=== PATIENT | female | born 1950 | race Caucasian/White ===

== ENCOUNTER 2016-11-06 18:16 | Emergency (ER) | payer OTHER ==
[~2016-11-06] VITALS: Ht 147.3 cm; Wt 73.9 kg
[~2016-11-06 18:16] MED LIST: AMIT10TA6 PO; ASPI81TA21 PO; ATOR80TA PO; LEVO50TA PO; LSN/10125 PO; OMEP20CA59 PO
[2016-11-06 18:25] VITALS: TEMP 37.1; Ht 147.3 cm; Wt 73.9 kg
[2016-11-06] MEDS ORDERED: SODIUM CHLORIDE 0.9% 1000ML 1,000 ML IV STA (19:46)
--- NOTE | 2016-11-06 20:07 | DIAGNOSTIC IMAGING REPORT ---
CHEST ONE VIEW PORTABLE CLINICAL HISTORY: Atypical chest pain, cough, shortness of breath. COMPARISON STUDY: No previous studies for comparison. FINDINGS: The heart is at the upper limits of normal in size. There is no failure. There is no focal pulmonary consolidation. There are no pleural effusions.[ IMPRESSION: No active disease in the chest. Electronically signed by: Eugenio Tijerina M.D. 11/06/2016 8:06 PM Dictated Date/Time: 11/06/2016 8:05 PM
[2016-11-06 20:28] LABS: BASO % 0.5 %; BASO ABS # 0.04 K/uL (0-0.2); COMPLETE YES; EOS % 5.9 %; HEMATOCRIT 41.7 % (37-47); IG% 0.3 %; LYMPH % 38.6 %; LYMPH ABS # 2.96 K/uL (1.2-3.4); MEAN CELL VOLUME 87.4 fL (80-100); MEAN CORPUSCULAR HEMOGLOBIN 30.8 pg (25-34); MEAN CORPUSCULAR HGB CONC 35.3 g/dl (32-36); MEAN PLATELET VOLUME 10.3 fL (7.4-10.4); MONO % 9.8 %; NEUT % 44.9 %; PLATELET COUNT 171 K/uL (130-400); RED BLOOD COUNT 4.77 M/uL (4.2-5.4); WHITE BLOOD COUNT 7.67 K/uL (4.8-10.8)
[2016-11-06 20:49] LABS: ALT/SGPT 98 U/L (12-78); BLOOD UREA NITROGEN 18 mg/dl (7-18); BUN/CREATININE RATIO 17.8 (10-20); CALCIUM 9.5 mg/dl (8.5-10.1); CARBON DIOXIDE 26 mmol/L (21-32); CHLORIDE 96 mmol/L (98-107); GLUCOSE 117 mg/dl (70-99); SODIUM 133 mmol/L (136-145)
[2016-11-06 20:54] LABS: ALKALINE PHOSPHATASE 99 U/L (45-117); AST/SGOT 61 U/L (15-37); CKMB/CK RATIO 0.8 (0-3.0)
[2016-11-06] MEDS ORDERED: ALBUT/IPRATROP 3MG/0.5MG NEB 3 ML VIAL INH STA (21:03)
[2016-11-06] MEDS ORDERED: POTASSIUM CHLORIDE 10 MEQ TABCR PO STA (21:03)
[2016-11-06] MEDS ORDERED: SYN88 PO (21:08)
[2016-11-06] MEDS ORDERED: LOSA100T26 PO (21:10)
[2016-11-06] MEDS ORDERED: AMLO-110 PO (21:10)
[2016-11-06] MEDS ORDERED: OPTIRAY 320 IV PRN (21:30)
[2016-11-06] MEDS ORDERED: AZITHROMYCIN 250 MG TAB PO STA (22:26)
[2016-11-06] MEDS ORDERED: AZIT250T5 PO (22:27)
--- NOTE | 2016-11-06 22:28 | DIAGNOSTIC IMAGING REPORT ---
CT ANGIOGRAM OF THE CHEST CLINICAL HISTORY: Atypical chest pain, cough, shortness of breath COMPARISON STUDY: Chest x-ray dated November 06, 2016 TECHNIQUE: Following the IV administration of 78 mL of Optiray-320, CT angiogram of the thorax was performed from the thoracic inlet to the lung bases utilizing the pulmonary embolus protocol. Images are reviewed in the axial, sagittal, and coronal planes. IV contrast was administered without complication. MIP imaging was performed. CT DOSE: 491.22 mGy.cm FINDINGS: There is hepatic steatosis. There is a small hiatal hernia. No pathologically enlarged axillary mediastinal or hilar lymph nodes were visualized. There was no evidence of thoracic aortic dilatation. There were no pulmonary artery filling defects to indicate acute pulmonary embolism. No pleural effusions are visualized. There is bronchial wall thickening and areas of mucous plugging. There are fluffy airspace opacities in the left upper lobe, consistent with a pneumonia. There are dependent atelectatic changes. IMPRESSION: 1. No CT evidence of acute pulmonary embolism 2. Fluffy nodular airspace opacities within the left upper lobe consistent with a pneumonia 3. Areas of bronchial wall thickening and mucous plugging. 4. Hepatic steatosis Electronically signed by: Eugenio Tijerina M.D. 11/06/2016 9:49 PM Dictated Date/Time: 11/06/2016 9:45 PM
[2016-11-06] MEDS ORDERED: ALBUTEROL HFA 8 GM INHALER INH ONE (22:30)
[2016-11-06 22:37] VITALS: BP 119/71; PULSE 101; O2SAT 96
--- NOTE | 2016-11-06 22:37 | EMERGENCY ROOM VISIT NOTE ---
History Report prepared by Mauri: Sarah Sheldon Under the Supervision of: Dr. Christian Cole M.D. First contact with patient: 19:46 Chief Complaint: REFERRED BY DOCTOR Stated Complaint: COUGH, SOB, CONGESTION History of Present Illness The patient is a 66 year old female who presents to the Emergency Room with complaints of a persistent cough for the past week, that worsened over the last two days. The patient states that she went to her PCP's office today and was told to come to the emergency department for further evaluation. She states that while at her PCP's office, she had an elevated heart rate, but notes that her blood pressure was normal. The patient states that her PCP was worried about a possible pneumonia developing. She notes a personal history of hyperthyroidism and hypertension. The patient notes increased bilateral lower extremity edema. The patient notes a surgical history of a hernia repair and a cholecystectomy. She states that her father had angina, but denies any large family history of heart disease. Pt denies LOC, headache, fevers, chills, diaphoresis, visual changes, neck pain, chest pain, personal history or family history of aneurysm or pulmonary embolism, uncontrolled hypertension, breathing difficulties, leg swelling, coagulation abnormalities, prolonged travel, recent surgery or immobilization, nausea, vomiting, abdominal pain, melena, hematochezia, urinary symptoms, numbness, weakness, lymphadenopathy, rash, or other complaints. Source of History: patient Onset: past week Position: other (global) Quality: other (cough) Timing: other (persistent) Note: Associated Symptoms: bilateral lower extremity edema. Review of Systems See HPI for pertinent positives and negatives. A total of ten systems were reviewed and were otherwise negative. Past Medical & Surgical Medical Problems: (1) Hypertension (2) Hyperthyroidism Surgical Problems: (1) S/P cholecystectomy (2) S/P hernia repair Family History No pertinent family history stated. Social History Smoking Status: Never Smoker Marital Status: Housing Status: lives with significant other Occupation Status: employed Current/Historical Medications Scheduled Amitriptyline Hcl (Elavil), 10 MG PO DHS Amlodipine (Norvasc), 5 MG PO QAM Aspirin Enteric Coated (Ecotrin Or Generic), 81 MG PO DAILY Azithromycin (Zithromax), 250 MG PO DAILY Levothyroxine Sodium (Synthroid), 88 MCG PO QAM Losartan Potassium & Hydrochlo (Losartan Potassium/Hydroc), 1 TAB PO QAM Omeprazole (Prilosec), 20 MG PO [facility] Allergies Coded Allergies: Sulfa Drugs (Verified Allergy, Unknown, HIVES, 11/06/16) Physical Exam Vital Signs Date Time Temp Pulse Resp B/P Pulse Ox O2 Delivery O2 Flow Rate FiO2 11/06/16 21:15 122 20 127/85 95 Room Air 11/06/16 18:25 37.1 124 20 125/75 95 Room Air Physical Exam GENERAL: Awake, alert, well-appearing, in no distress HENT: Normocephalic, atraumatic. Oropharynx unremarkable. EYES: Normal conjunctiva. Sclera non-icteric. NECK: Supple. No nuchal rigidity. FROM. No JVD. RESPIRATORY: Scattered rhonchi noted. CARDIAC: Tachycardic rate, normal rhythm. Extremities warm and well perfused. Pulses equal. ABDOMEN: Soft, non-distended. No tenderness to palpation. No rebound or guarding. No masses. RECTAL: Deferred. MUSCULOSKELETAL: Chest examination reveals no tenderness. The back is symmetrical on inspection without obvious abnormality. There is no CVA tenderness to palpation. No joint edema. LOWER EXTREMITIES: Calves are equal size bilaterally and non-tender. No edema. No discoloration. NEURO: Normal sensorium. No sensory or motor deficits noted. SKIN: No rash or jaundice noted. Medical Decision & Procedures ER Provider Diagnostic Interpretation: X-ray: Per my interpretation, radiologist review. CHEST ONE VIEW PORTABLE CLINICAL HISTORY: Atypical chest pain, cough, shortness of breath. COMPARISON STUDY: No previous studies for comparison. FINDINGS: The heart is at the upper limits of normal in size. There is no failure. There is no focal pulmonary consolidation. There are no pleural effusions.[ IMPRESSION: No active disease in the chest. Electronically signed by: Eugenio Tijerina M.D. 11/06/2016 8:06 PM Dictated Date/Time: 11/06/2016 8:[address] imaging gram of the chest. No evidence of pulmonary embolism was noted. Fluffy nodular airspace opacities within the left upper lobe consistent with pneumonia. Areas of bronchial wall thickening and mucus plugging present. Hepatic steatosis noted. Laboratory Results 11/06/16 20:10 Red Blood Count 4.77, Mean Corpuscular Volume 87.4, Mean Corpuscular Hemoglobin 30.8, Mean Corpuscular Hemoglobin Concent 35.3, Mean Platelet Volume 10.3, Neutrophils (%) (Auto) 44.9, Lymphocytes (%) (Auto) 38.6, Monocytes (%) (Auto) 9.8, Eosinophils (%) (Auto) 5.9, Basophils (%) (Auto) 0.5, Neutrophils # (Auto) 3.45, Lymphocytes # (Auto) 2.96, Monocytes # (Auto) 0.75, Eosinophils # (Auto) 0.45, Basophils # (Auto) 0.04 11/06/16 20:10 Test 11/06/16 20:10 11/06/16 21:00 White Blood Count 7.67 K/uL (4.8-10.8) Red Blood Count 4.77 M/uL (4.2-5.4) Hemoglobin 14.7 g/dL (12.0-16.0) Hematocrit 41.7 % (37-47) Mean Corpuscular Volume 87.4 fL (80-100) Mean Corpuscular Hemoglobin 30.8 pg (25-34) Mean Corpuscular Hemoglobin Concent 35.3 g/dl (32-36) Platelet Count 171 K/uL (130-400) Mean Platelet Volume 10.3 fL (7.4-10.4) Neutrophils (%) (Auto) 44.9 % Lymphocytes (%) (Auto) 38.6 % Monocytes (%) (Auto) 9.8 % Eosinophils (%) (Auto) 5.9 % Basophils (%) (Auto) 0.5 % Neutrophils # (Auto) 3.45 K/uL (1.4-6.5) Lymphocytes # (Auto) 2.96 K/uL (1.2-3.4) Monocytes # (Auto) 0.75 K/uL (0.11-0.59) Eosinophils # (Auto) 0.45 K/uL (0-0.5) Basophils # (Auto) 0.04 K/uL (0-0.2) RDW Standard Deviation 43.8 fL (36.4-46.3) RDW Coefficient of Variation 13.7 % (11.5-14.5) Immature Granulocyte % (Auto) 0.3 % Immature Granulocyte # (Auto) 0.02 K/uL (0.00-0.02) Anion Gap 11.0 mmol/L (3-11) Est Creatinine Clear Calc Drug Dose 47.3 ml/min Estimated GFR () 68.0 Estimated GFR (Non- 58.7 BUN/Creatinine Ratio 17.8 (10-20) Calcium Level 9.5 mg/dl (8.5-10.1) Total Bilirubin 0.6 mg/dl (0.2-1) Direct Bilirubin 0.1 mg/dl (0-0.2) Aspartate Amino Transf (AST/SGOT) 61 U/L (15-37) Alanine Aminotransferase (ALT/SGPT) 98 U/L (12-78) Alkaline Phosphatase 99 U/L (45-117) Total Creatine Kinase 198 U/L (26-192) Creatine Kinase MB 1.5 ng/ml (0.5-3.6) Creatine Kinase MB Ratio 0.8 (0-3.0) Troponin I < 0.015 ng/ml (0-0.045) Total Protein 8.8 gm/dl (6.4-8.2) Albumin 4.2 gm/dl (3.4-5.0) Lipase 160 U/L (73-393) Bedside D-Dimer > 450 ng/mlFEU (0-450) Laboratory results reviewed by me Medications Administered Medications (Trade) Dose Ordered Sig/Lorena Route Start Time Stop Time Status Last Admin Dose Admin Sodium Chloride (Nss 1000ml) 1,000 ml @ 999 mls/hr Q1H1M STAT IV 11/06/16 19:46 11/06/16 20:46 DC 11/06/16 20:11 999 MLS/HR Albuterol/ Ipratropium (Duoneb) 3 ml NOW STAT INH 11/06/16 21:03 11/06/16 21:05 DC 11/06/16 21:13 3 ML Potassium Chloride (Klor-Con M10) 20 meq NOW STAT PO 11/06/16 21:03 11/06/16 21:05 DC 11/06/16 21:13 20 MEQ ECG Indication: other (cough) Rate (beats per minute): 123 Rhythm: sinus tachycardia Findings: no acute ischemic change, no ectopy Change: The above EKG was done at her PCP's office today. ED Course 1945: Ordered Sodium Chloride 1000 ml @ 999 mls/hr IV. 1954: The patient was evaluated in room C11B. A complete history and physical exam was performed. 2057: I reevaluated the patient and she is doing well. I discussed all the exam findings with her so far and I discussed the treatment plan. She verbalized complete understanding and agreement. 2057: I reevaluated the patient and she is doing well. I discussed all the exam findings with her. 2102: Ordered Potassium Chloride 20 meq PO, DuoNeb 3 ml INH. 2118: I reevaluated the patient and she is resting comfortably. I informed her elevated d-dimer. She is in agreement to have a CT scan. 2229: patient was reevaluated. She is doing well. She was given Zithromax and albuterol MDI. She will be discharged. Return instructions were outlined.: Medical Decision Triage Nursing notes reviewed. The patient's presentation and history were concerning for respiratory symptoms. Etiologies such as pneumonia, COPD, reactive airway disease, CHF, cardiac ischemia, pulmonary embolism, pneumothorax, musculoskeletal, infections, gastrointestinal, as well as others were entertained. The patient was evaluated. She did not want a repeat ECG performed. She had sinus tachycardia. The patient had an unremarkable x-ray. CBC was negative. Chemistry panel revealed some mild hypokalemia. This was repleted. Patient had mild elevation of LFTs that states this has been present in the past as she has YUSUF. Cardiac markers negative. Patient was given a DuoNeb. The patient had a positive d-dimer. Imaging chest was performed and revealed a left sided pneumonia. Patient was treated with Zithromax. She was given an albuterol MDI. Prescription was sent to her pharmacy. The patient felt comfortable with conservative management. She will need close outpatient follow-up. I gave my usual and customary discussion regarding this issue. By the evaluation outlined above other emergent etiologies such as those listed in the differential, as well as others, were deemed relatively unlikely. The patient and her daughter were informed about the findings as listed above. All questions were answered and they were pleased with the treatment. Return instructions were outlined and the patient was discharged in stable condition. The patient was referred to her PCP for follow-up this week for a recheck of the current condition. The chart was completed utilizing [employer] voice recognition software. Grammatical errors, random word insertions, pronoun errors, and incomplete sentences are an occasional consequence of this system due to software limitations, ambient noise, and hardware issues. Any formal questions or concerns about the content, text, or information contained within the body of this dictation should be directly addressed to the physician for clarification. Impression Primary Impression: Pneumonia Additional Impression: Hypokalemia Scribe Attestation The scribe's documentation has been prepared under my direction and personally reviewed by me in its entirety. I confirm that the note above accurately reflects all work, treatment, procedures, and medical decision making performed by me. Departure Information Dispostion Home / Self-Care Prescriptions Azithromycin (ZITHROMAX) 250 Mg Tab 250 MG PO DAILY, #4 TAB Prov: Christian Cole MD 11/06/16 Referrals Nahomi Fritz M.D. (PCP) Patient Instructions My [facility] Additional Instructions PNEUMONIA INSTRUCTIONS: Azithromycin(Zithromax) 250mg: Take one a day for 4 additional days. All antibiotics can cause diarrhea. If this occurs and you feel worse or it does not resolve in 1-2 days follow up with your doctor or return to the Emergency Department as this could be signs of serious underlying problems. Any medication can cause an allergic reaction, stop the pills immediately and return to the ER for rash, hives, breathing difficulties, or swelling. Albuterol Inhaler: Take 2 puffs four times daily for seven days, then as needed. Ibuprofen(Motrin, Advil) may be used for fever or pain. Use 600mg every six hours as needed. Take with food. Avoid using more than 2400mg in a 24 hour period. Do not use 2400mg per day for more than three consecutive days without physician direction. Prolonged inappropriate use can lead to stomach upset or ulcers. Controlling your fever with Tylenol and Ibuprofen as above will make you feel better. Rest and drink plenty of fluids. Avoid strenuous activity until your symptoms resolve and your breathing returns to normal. Return to the ER for chest pain, difficulty breathing, persistent fevers, vomiting, worsening of your condition, or as needed. Follow up with your primary physician in 2-3 days for a recheck of the current condition. Problem Qualifiers
== END 2016-11-06 22:38 | disposition home or self-care (01) ==
LOC: C.EDB 18:18 → C.EDC 22:38
DX: J18.9 Pneumonia, unspecified organism (principal); E87.6 Hypokalemia; I10 Essential (primary) hypertension; E05.90 Thyrotoxicosis, unspecified without thyrotoxic crisis or storm; Z79.82 Long term (current) use of aspirin; Z79.899 Other long term (current) drug therapy

== ENCOUNTER → 2017-05-28 | Outpatient (CLI) | payer OTHER ==
[~2017-05-28] MED LIST changes: +AMLO-110 PO; -ATOR80TA PO; -LEVO50TA PO; +LOSA100T26 PO; -LSN/10125 PO; +SYN88 PO
--- NOTE | 2017-05-28 13:03 | MAMMOGRAPHY REPORT ---
BILATERAL DIGITAL SCREENING MAMMOGRAM WITH CAD: 05/28/2017 CLINICAL HISTORY: Routine screening. Patient has no complaints. TECHNIQUE: Bilateral CC, MLO and repeat left MLO views were obtained. Current study was also evaluat ed with a Computer Aided Detection (CAD) system. COMPARISON: Comparison is made to exams dated: 05/04/2016 mammogram, 05/03/2015 mammogram, 04/13/2014 ma mmogram, 04/22/2013 mammogram, 10/27/2012 mammogram, and 04/18/2012 ultrasound - [facility] enter. BREAST COMPOSITION: There are scattered areas of fibroglandular density in both breasts. FINDINGS: There are scattered stable benign round and rim calcifications bilaterally. No new suspici ous mass, architectural distortion or cluster of microcalcifications is seen. IMPRESSION: ACR BI-RADS CATEGORY 1: NEGATIVE There is no mammographic evidence of malignancy. A 1 year screening mammogram is recommended. The pa tient will receive written notification of the results. Approximately 10% of breast cancers are not detected with mammography. A negative mammographic report should not delay biopsy if a clinically suggestive mass is present. Bebe Bradford M.D. ay/:05/28/2017 08:06:36 Real Estate Appraiser: Sepideh Plata, M, [facility] letter sent: Normal 1/2 BI-RADS Code: ACR BI-RADS Category 1: Negative
== END | disposition home or self-care (01) ==
LOC: C.MAMM 07:34
PROVIDERS: ATTEND Family Medicine
DX: Z12.31 Encounter for screening mammogram for malignant neoplasm of breast (principal)

== ENCOUNTER 2017-12-21 21:33 | Emergency (ER) | payer OTHER ==
[~2017-12-21] VITALS: Ht 147.3 cm; Wt 75.2 kg
[~2017-12-21 21:33] MED LIST changes: +ASPI-319 PO; -ASPI81TA21 PO; -LOSA100T26 PO; +LOSA100T33 PO
[2017-12-21 21:46] VITALS: BP 143/84; PULSE 104; TEMP 36.9; O2SAT 93; Ht 147.3 cm; Wt 75.2 kg
[2017-12-21] MEDS ORDERED: XYLOCAINE 1%/SOD BICARB 20 ML VIAL INFIL ONE (22:00)
[2017-12-21] MEDS ORDERED: GLC/500 PO (22:26)
[2017-12-21] MEDS ORDERED: OMEP20CA9 PO (22:26)
--- NOTE | 2017-12-21 23:42 | EMERGENCY ROOM VISIT NOTE ---
ED Visit Note First contact with patient: 21:57 CHIEF COMPLAINT: Finger laceration HISTORY OF PRESENT ILLNESS: This 67-year-old female patient presents to the emergency department immediately after cutting the left index finger with a knife. The bleeding has not stopped. Denies weakness or numbness of the finger. The patient has full range of motion of the fingers. The patient rates the pain as mild and 3/10. The patient denies any other injuries. The patient's tetanus shot is up to date. REVIEW OF SYSTEMS: A 6 system review of systems was completed with positives and pertinent negatives listed in the HPI. ALLERGIES: Bactrim MEDICATIONS: Personally reviewed. Please see medication list PMH: Hypertension SOCIAL HISTORY: Denies tobacco or EtOH use. The patient is employed. PHYSICAL EXAM: Vital Signs: Reviewed Nurse's notes, vital signs stable. GENERAL : 67-year-old female, in no acute distress, well developed, well nourished. SKIN: There is a 2.5 cm long flap-like laceration on the palmar aspect of the left index finger. The edges gape apart with traction. There is no foreign material in the wound and it looks clean. There is no active bleeding. No deep structures such as tendons, bones, or significant blood vessels are seen in the base of the wound. Extension and flexion of the finger is full and strong. Full range of motion of the wrist and other fingers. Capillary refill less than 2 seconds. Normal sensation to light and sharp touch. EMERGENCY DEPARTMENT COURSE: I examined the patient. Verbal consent was obtained to perform the procedure. Using sterile technique the wound was cleansed with Betadine. 4 ml of 1% buffered lidocaine was used to perform a digital block to anesthetize the patient. The area was sterilely draped. Once the patient was anesthetized, the wound was copiously irrigated under pressure with sterile saline. The wound was explored and there were no deep structures injured. The laceration was repaired using 5 simple interrupted 5-0 nylon sutures. The patient tolerated the procedure well. Hemostasis was achieved. The area was cleaned with sterile saline and dressed with bacitracin ointment and bandage. The patient was discharged home in good condition. DIAGNOSIS: Finger laceration DISCHARGE INSTRUCTIONS & TREATMENT Keep wound clean. It is okay to gently wash the area with soapy water. Do not submerse it in water for long periods of time such as swimming, going in hot tubs or taking baths until the sutures come out. Do not allow any crusting or dried blood to accumulate on sutures. If this occurs, use a 1:1 solution of hydrogen peroxide/water on a Q-tip to clean the wound. Use an antibiotic ointment for 3-4 days, then let wound dry. Suture removal in 14 days. Return sooner for any signs of infection ( increasing redness, swelling, drainage). Ice and elevate for swelling and pain. Ibuprofen 600 mg and Tylenol 1000 mg every 6 hrs for pain. This chart was completed in part utilizing [employer] Speech Voice Recognition software. Attempts were made to minimize the grammatical errors, random word insertions, pronoun errors and incomplete sentences. Any formal questions or concerns about the content, text or information contained within the body of this dictation should be directly addressed to the provider for clarification.
== END 2017-12-21 22:56 | disposition home or self-care (01) ==
LOC: C.EDB 21:34 → C.EDD 22:56
DX: S61.211A Laceration without foreign body of left index finger without damage to nail, initial encounter (principal); W26.0XXA Contact with knife, initial encounter; I10 Essential (primary) hypertension